=== PATIENT | female | born 2000 | race Caucasian/White ===

== ENCOUNTER 2022-10-02 07:00 | Emergency (ER) | payer OTHER ==
[~2022-10-02] VITALS: Ht 180.3 cm; Wt 132.0 kg
[2022-10-02] MEDS ORDERED: AMOX1TAB16 PO (07:42)
[2022-10-02 07:45] VITALS: BP 130/96
[2022-10-02] MEDS ORDERED: KETOROLAC 30MG/ML VIAL IM ONE (07:45)
[2022-10-02] MEDS ORDERED: DEXAMETHASONE 4MG/ML 1ML VIAL IM ONE (07:45)
== END 2022-10-02 08:06 | disposition home or self-care (01) ==
LOC: ER 08:04
DX: B34.9 Viral infection, unspecified (principal)
CPT/HCPCS: 96372; 99284; J1100; J1885

== ENCOUNTER 2022-10-17 07:47 | Emergency (ER) | payer OTHER ==
[~2022-10-17] VITALS: Ht 180.3 cm; Wt 109.0 kg
[~2022-10-17 07:47] MED LIST: AMOX1TAB16 PO
[2022-10-17 07:52] VITALS: BP 144/89
[2022-10-17] MEDS ORDERED: IBUP-2437 MT (10:34)
[2022-10-17] MEDS ORDERED: ACET-2708 MT (10:34)
[2022-10-17] MEDS ORDERED: OFLO5DRO4 RIGHT EAR (10:34)
== END 2022-10-17 11:08 | disposition home or self-care (01) ==
LOC: ER 07:47
DX: H60.91 Unspecified otitis externa, right ear (principal)
CPT/HCPCS: 99283